=== PATIENT | male | born 2000 | race American Indian/Alaskan Native ===

== ENCOUNTER 2021-03-05 09:58 | Emergency (ER) | payer BC ==
[2021-03-05] MEDS ORDERED: METOCLOPRAMIDE 10 MG/2 ML INJ IV ONE (11:41)
[2021-03-05] MEDS ORDERED: diphenhydrAMINE 50 MG/ML VIAL IV ONE (11:41)
[2021-03-05] MEDS ORDERED: SODIUM CHLORIDE 0.9% 1000 ML 1,000 ML IV ONE (11:41)
[2021-03-05] MEDS ORDERED: ACETAMINOPHEN 500 MG TAB PO ONE (11:41)
--- NOTE | 2021-03-05 11:41 | Emergency Department Report ---
ED Headache HPI - General Chief Complaint: Headache Stated Complaint: BAD HEADACHE Time Seen by Provider: 03/05/21 11:03 Source: patient Exam Limitations: no limitations - History of Present Illness Initial Comments: 20 year old male presents to ED with c/o severe bitemporal GR. He states his GR started about 2 days ago. He states it has been constant and is worse with any kind of movement including walking and also worse with light and noise. She denies any recent Head or facial injury. He states he is currently being treated with PCN and prednisone for strep throat which he was diagnosed with 2 days ago. He denies any fever in past 2 days. He denies any neck pain or neck stiffness. He denies any numbness, tingling, weakness, chest pain, cough, sob or any other symptoms. He denies hx of HAs. He denies any significant pmhx. Timing/Duration: constant, other (2 days ago ) Quality: severe Head Injury Location: temporal Allergies/Adverse Reactions: Allergies No Known Allergies Allergy (Unverified 03/05/21 10:05) Home Medications: Ambulatory Orders Butalb/Acetamin/Caff 50-325-40 [Fioricet 50-325-40] 1 each PO Q4H PRN #12 tablet 03/05/21 Ibuprofen [Motrin] 600 mg PO Q8H PRN #30 tablet 03/05/21 ED Review of Systems ROS: Stated complaint: BAD HEADACHE Other details as noted in HPI Comment: All other systems reviewed and negative Constitutional: denies: chills, diaphoresis, fever, malaise, weakness Eyes: denies: eye pain, eye discharge, vision change ENT: throat pain. denies: ear pain, dental pain, hearing loss, epistaxis, congestion Respiratory: denies: cough, orthopnea, shortness of breath, SOB with exertion, SOB at rest, wheezing Cardiovascular: denies: chest pain, palpitations, dyspnea on exertion, edema, syncope, paroxysmal nocturnal dyspnea Gastrointestinal: denies: abdominal pain, nausea, vomiting, diarrhea, constipation, hematemesis, hematochezia Genitourinary: denies: urgency, dysuria, frequency, hematuria, discharge, testicular pain, testicular mass Musculoskeletal: denies: back pain, joint swelling, arthralgia Skin: denies: rash, lesions, change in color, change in hair/nails, pruritus Neurological: headache. denies: weakness, numbness, paresthesias, confusion, abnormal gait, vertigo Psychiatric: denies: anxiety, depression, auditory hallucinations, visual h allucinations, homicidal thoughts, suicidal thoughts Hematological/Lymphatic: denies: easy bleeding, easy bruising, swollen glands ED Past Medical Hx - Past Medical History Previous Medical History?: No - Surgical History Past Surgical History?: No - Social History Smoking Status: Never Smoker Substance Use Type: None - Medications Home Medications: Home Medications Medication Instructions Recorded Confirmed Last Taken Type Butalb/Acetamin/Caff 50-325-40 1 each PO Q4H PRN #12 tablet 03/05/21 Unknown Rx [Fioricet 50-325-40] Ibuprofen [Motrin] 600 mg PO Q8H PRN #30 tablet 03/05/21 Unknown Rx ED Physical Exam - General Limitations: No Limitations General appearance: alert, in no apparent distress - Head Head exam: Present: atraumatic, normocephalic, normal inspection - Eye Eye exam: Present: normal appearance, PERRL, EOMI Pupils: Present: normal accommodation - ENT ENT exam: Present: normal exam, mucous membranes moist, TM's normal bilaterally - Expanded ENT Exam Expanded Mouth exam: Absent: drooling, trismus, muffled voice, tongue normal, tongue elevation, laceration Throat exam: Positive: tonsillar erythema, tonsillomegaly. Negative: tonsillar exudate, R peritonsillar mass, L peritonsillar mass - Neck Neck exam: Present: normal inspection. Absent: tenderness, meningismus - Respiratory Respiratory exam: Present: normal lung sounds bilaterally. Absent: respiratory distress, wheezes, rales, rhonchi - Cardiovascular Cardiovascular Exam: Present: regular rate, normal rhythm, normal heart sounds - Extremities Exam Extremities exam: Present: normal inspection - Neurological Exam Neurological exam: Present: alert, oriented X3, CN II-XII intact, normal gait - Psychiatric Psychiatric exam: Present: normal affect, normal mood - Skin Skin exam: Present: intact ED Course Vital Signs 03/05/21 03/05/21 03/05/21 10:01 12:06 13:07 Temperature 102.0 F H 98.4 F Pulse Rate 116 H 90 Respiratory 15 18 16 Rate Blood Pressure 120/72 Blood Pressure 117/66 [Left] O2 Sat by Pulse 92 100 Oximetry ED Medical Decision Making - Lab Data Result diagrams: 03/05/21 12:23 03/05/21 12:23 - Medical Decision Making 1400: Patient reports feeling much better after IV fluids and IV meds and stated that he was ready to go home. Repeat vitals shows improvement after medicati ons. Patient is well-appearing and nontoxic and currently not in any acute distress. He is awake alert oriented x3, neurologically intact with a normal gait. Low suspicion for meningitis, or any other intracranial abnormality, sepsis, severe pneumonia, peritonsillar abscess or any other emergent conditions warranting additional testing or treatment, admission or transfer at this time. Suspect that his symptoms related to his strep infection that he is currently getting treated for. Recommend that he continue taking the penicillin twice a day and to complete it. Recommend that he drinks lots of fluids and rest. Patient expresses understanding of instructions and agree with plan. Patient was stable at time of discharge. Critical care attestation.: If time is entered above; I have spent that time in minutes in the direct care of this critically ill patient, excluding procedure time. ED Disposition Clinical Impression: Headache, Strep pharyngitis Disposition: DC-01 TO HOME OR SELFCARE Is pt being admited?: No Does the pt Need Aspirin: No Condition: Stable Instructions: General Headache Without Cause, Strep Throat, Adult, [id number] Additional Instructions: Recommend that you continue taking the penicillin as prescribed and take it to completion. Take the Motrin and the Fioricet as prescribed for pain. I recommend that you drink lots of fluids to maintain hydration and also rest. Continue to check your temperatures at home and you can take Tylenol every 4 hours or the ibuprofen every 6 hours for fever. Follow-up with your primary care doctor. Return to the ER if your symptoms changes or worsens in any way. Prescriptions: Butalb/Acetamin/Caff 50-325-40 [Fioricet 50-325-40] 1 each PO Q4H PRN #12 tablet PRN Reason: Headache Ibuprofen [Motrin] 600 mg PO Q8H PRN #30 tablet PRN Reason: Pain Referrals: RASHMI LINDO MD [Staff Physician] - 3-5 Days Forms: Work/School Release Form(ED) Time of Disposition: 13:47
[2021-03-05 12:45] LABS: Basophils # (Auto) 0.1 K/mm3 (0.0-0.1); Basophils % (Auto) 0.6 % (0.0-1.8); Hematocrit 43.7 % (35.5-45.6); Hemoglobin 14.6 gm/dl (11.8-15.2); Lymphocytes # (Auto) 2.2 K/mm3 (1.2-5.4); Lymphocytes % (Auto) 21.3 % (13.4-35.0); Mean Corpuscular HGB Conc 34 % (32-34); Mean Corpuscular Volume 79 fl (84-94); Monocytes # (Auto) 1.5 K/mm3 (0.0-0.8); Monocytes % (Auto) 14.4 % (0.0-7.3); Platelet Count 376 K/mm3 (140-440); Red Blood Count 5.51 M/mm3 (3.65-5.03); Red Cell Distribution Width 12.8 % (13.2-15.2)
[2021-03-05 13:09] VITALS: BP 117/66
[2021-03-05 13:18] LABS: Alanine Aminotransferase 31 units/L (7-56); Albumin 4.3 g/dL (3.9-5); BUN/Creatinine Ratio 10; Blood Urea Nitrogen 10 mg/dL (9-20); Calcium 9.2 mg/dL (8.4-10.2); Hemolysis Index 17
== END 2021-03-05 14:25 | disposition home or self-care (01) ==
LOC: ED 09:58
DX: J02.0 Streptococcal pharyngitis (principal); R51.9 Headache, unspecified; Z79.1 Long term (current) use of non-steroidal anti-inflammatories (NSAID); Z79.899 Other long term (current) drug therapy
CPT/HCPCS: 36415; 80053; 85025; 96361; 96374; 96375; 99283; J1200; J2765; J7030